=== PATIENT | female | born 1995 | race African-American/Black ===

== ENCOUNTER 2017-08-04 09:43 | Emergency (ER) | payer SELFPAY ==
[2017-08-04 10:03] VITALS: BP 118/71
--- NOTE | 2017-08-04 10:14 | EDM.PDOC ---
ED HPI GENERAL MEDICAL PROBLEM - General Chief Complaint: [employer] Problem Stated Complaint: POST MISCARRAIGE, ABDOMEN PAIN Time Seen by Provider: 08/04/17 10:13 Source of Information: Reports: Patient, RN, RN Notes Reviewed History Limitations: Reports: No Limitations - History of Present Illness INITIAL COMMENTS - FREE TEXT/NARRATIVE: G3, P1, sAb1, eAb0, L0 w/pediatric at 18mos. due to an infection. LMP . Reports positive home test on 07/16/17. Pt c/o onset of pelvic cramping and dark vaginal bleeding and passage of large clots for 3 days, then it quit. Pt believes she had a miscarriage and thought she should be evaluated. Admits to mild pelvic cramping. Denies any further vaginal bleeding. Denies fever, chills, N/V, or urinary Sx's. Onset Date: 08/15/17 Duration: Resolved Prior to Arrival Location: Reports: Pelvis Quality: Reports: Other (cramping) Severity: Mild Improves with: Reports: None Worsens with: Reports: None Associated Symptoms: Reports: No Other Symptoms Pelvic Pain Score (Numeric/FACES): 10 (at maximal intensity) - Related Data Allergies Allergy/AdvReac Type Severity Reaction Status Date / Time No Known Allergies Allergy Verified 08/04/17 09:54 Home Meds: Home Meds NK [No Known Home Meds] 0 mg DAILY 08/04/17 [History] Past Medical History - Past Health History Medical/Surgical History: Denies Medical/Surgical History [employer] History: Reports: Spontaneous : 3 Para: 1 Social & Family History - Family History Family Medical History: Noncontributory - Tobacco Use Smoking Status *Q: Never Smoker - Caffeine Use Caffeine Use: Reports: None - Recreational Drug Use Recreational Drug Use: No - Living Situation & Occupation Living situation: Reports: with Family ED ROS GENERAL - Review of Systems Review Of Systems: ROS reveals no pertinent complaints other than HPI. ED EXAM - Physical Exam Exam: See Below Exam Limited By: No Limitations General Appearance: Alert, WD/WN, No Apparent Distress Head: Atraumatic, Normocephalic Respiratory/Chest: No Respiratory Distress, Lungs Clear, Normal Breath Sounds, No Accessory Muscle Use, Chest Non-Tender Cardiovascular: Regular Rate, Rhythm, No Edema GI/Abdominal Exam: Normal Bowel Sounds, Soft, Non-Tender, No Organomegaly, No Distention, No Abnormal Bruit, No Mass, Pelvis Stable Back Exam: Normal Inspection Extremities: Normal Inspection, Normal Range of Motion, Non-Tender, Normal Capillary Refill, No Pedal Edema Neurological: Alert, Oriented, CN II-XII Intact, Normal Cognition, Normal Gait, No Motor/Sensory Deficits Psychiatric: Normal Affect, Normal Mood Skin Exam: Warm, Dry, Intact, Normal Color, No Rash Course - Vital Signs Last Recorded V/S: Last Vital Signs Temp 36.2 C 08/04/17 10:02 Pulse 54 L 08/04/17 10:02 Resp 16 08/04/17 10:02 BP 118/71 08/04/17 10:02 Pulse Ox 100 08/04/17 10:02 - Orders/Labs/Meds Labs: Laboratory Tests 08/04/17 08/04/17 08/04/17 Range/Units 10:14 10:30 10:30 WBC 4.7 L (5.0-10.0) 10^3/uL RBC 4.47 (4.2-5.4) 10^6/uL Hgb 13.0 (12.0-16.0) g/dL Hct 38.8 (37.0-47.0) % MCV 86.8 (80-100) fL MCH 29.1 (27.0-34.0) pg MCHC 33.5 (33.0-35.0) g/dL Plt Count 210 (150-450) 10^3/uL Neut % (Auto) 52.2 (42.2-75.2) % Lymph % (Auto) 37.3 (20.5-50.1) % Vance % (Auto) 9.2 H (2-8) % Eos % (Auto) 0.9 L (1.0-3.0) % Baso % (Auto) 0.4 (0.0-1.0) % HCG, Quant < 1 (0-25) mIU/ml Beta HCG, Quant < 1050 mIU/ml Urine Color Yellow (YELLOW) Urine Appearance Clear (CLEAR) Urine pH 8.5 (5.0-9.0) Ur Specific [place] 1.015 (1.005-1.030) Urine Protein Negative (NEGATIVE) Urine Glucose (UA) Negative (NEGATIVE) Urine Ketones Negative (NEGATIVE) Urine Occult Blood Negative (NEGATIVE) Urine Nitrite Negative (NEGATIVE) Urine Bilirubin Negative (NEGATIVE) Urine Urobilinogen 1.0 (0.2-1.0) mg/dL Ur Leukocyte Esterase Negative (NEGATIVE) Urine RBC Not seen /HPF Urine WBC 0-5 (0-5/HPF) /HPF Ur Epithelial Cells Few /HPF Urine Bacteria Rare (0-FEW/HPF) /HPF Urine Mucus Not seen /LPF Blood Type 08/04/17 Range/Units 10:30 WBC (5.0-10.0) 10^3/uL RBC (4.2-5.4) 10^6/uL Hgb (12.0-16.0) g/dL Hct (37.0-47.0) % MCV (80-100) fL MCH (27.0-34.0) pg MCHC (33.0-35.0) g/dL Plt Count (150-450) 10^3/uL Neut % (Auto) (42.2-75.2) % Lymph % (Auto) (20.5-50.1) % Vance % (Auto) (2-8) % Eos % (Auto) (1.0-3.0) % Baso % (Auto) (0.0-1.0) % HCG, Quant (0-25) mIU/ml Beta HCG, Quant mIU/ml Urine Color (YELLOW) Urine Appearance (CLEAR) Urine pH (5.0-9.0) Ur Specific [place] (1.005-1.030) Urine Protein (NEGATIVE) Urine Glucose (UA) (NEGATIVE) Urine Ketones (NEGATIVE) Urine Occult Blood (NEGATIVE) Urine Nitrite (NEGATIVE) Urine Bilirubin (NEGATIVE) Urine Urobilinogen (0.2-1.0) mg/dL Ur Leukocyte Esterase (NEGATIVE) Urine RBC /HPF Urine WBC (0-5/HPF) /HPF Ur Epithelial Cells /HPF Urine Bacteria (0-FEW/HPF) /HPF Urine Mucus /LPF Blood Type O POSITIVE Departure - Departure Time of Disposition: 11:35 Disposition: Home, Self-Care 01 Condition: Good Clinical Impression: Pain in pelvis, Miscarriage - Discharge Information Instructions: Miscarriage, [id number] Forms: ED Department Discharge Additional Instructions: Rx: Naprosyn 500mg Follow up in clinic this week for recheck. Return to the ER if you develop a fever, or heavy vaginal bleeding.
[2017-08-04] MEDS ORDERED: traMADol 50 MG Tab PO ONE (11:39)
[2017-08-04] MEDS ORDERED: Ibuprofen 600 MG Tab PO ONE (11:39)
== END 2017-08-04 11:47 | disposition home or self-care (01) ==
LOC: DL.ED 09:43
DX: O03.9 Complete or unspecified spontaneous abortion without complication (principal)
CPT/HCPCS: 36415; 81001; 84702; 85025; 86900; 86901; 99284; A9270